=== PATIENT | female | born 1990 | race African-American/Black ===

== ENCOUNTER 2020-07-27 11:47 | Emergency (ER) | payer OTHER, SELFPAY ==
--- NOTE | ~2020-07-27 | XR_ITS ---
EXAMINATION: XR chest 1V portable DATE: 07/27/2020 12:37 INDICATION: Shortness breath. Chest tightness. TECHNIQUE: A single frontal view of the chest was obtained. COMPARISON: Chest single view 12/02/2019 FINDINGS: The chest demonstrates clear lungs without pneumonia, pleural effusion, or pneumothorax. Th e heart size is normal. IMPRESSION: 1. No acute cardiopulmonary disease. Reviewed, dictated and finalized at location A. TRUCK DRIVER
[2020-07-27 12:01] VITALS: BP 135/80; PULSE 66; RESP 18; TEMP 35.9; O2SAT 100
[2020-07-27 12:09] VITALS: PULSE 77
[2020-07-27 12:18] VITALS: BP 124/80; PULSE 62; RESP 20; O2SAT 99
--- NOTE | 2020-07-27 12:18 | ECG_ITS ---
Measurements Intervals [place] Rate: 65 P: 38 NE: 151 QRS: 21 QRSD: 85 T: 31 QT: 415 QTc: 433 Interpretive Statements SINUS RHYTHM NORMAL ECG Electronically Signed On 07-27-2020 13:14:59 LEGAL ADMINISTRATIVE SECRETARY by Miguel Angel Piña D.O.
[2020-07-27 12:28] LABS: Basophils Percent Auto 0.7 % (0.2-1.2); Eosinophils Absolute Auto 0.1 K/mm3 (0-0.3); Eosinophils Percent Auto 2.4 % (0-4.4); Hematocrit 39.6 % (37.0-47.0); Hemoglobin 12.9 g/dL (12.0-15.0); Lymphocytes Absolute Auto 2.61 K/mm3 (0.9-3.2); Lymphocytes Percent Auto 47.4 % (18.3-44.2); Mean Corpuscular HGB Conc 32.6 g/dl (32-36); Mean Corpuscular Hemoglobin 25.7 pg (26-34); Mean Platelet Volume 9.9 fl (7.4-10.4); Monocytes Absolute Auto 0.7 K/mm3 (0.1-0.6); Monocytes Percent Auto 12.5 % (2.6-8.5); Platelet Count Result 303 k/mm3 (150-375); Red Blood Count 5.01 M/mm3 (4.2-5.4); Red Cell Distribution Width 14.3 % (11.5-14.5); White Blood Count 5.5 K/mm3 (4.5-10.0)
[2020-07-27 12:41] LABS: Prothrombin Time 13.7 Seconds (11.1-14.7)
[2020-07-27 12:42] LABS: Partial Thromboplastin Time 29.8 SECONDS (22.3-36.8)
[2020-07-27 12:44] LABS: D Dimer 0.27 ug/mL (<0.48)
[2020-07-27 12:47] LABS: Anion Gap 8 mmol/L (8-16); Blood Urea Nitrogen 13 mg/dL (7-17); Calcium 8.9 mg/dL (8.4-10.2); Carbon Dioxide 27 mmol/L (22-30); Chloride 105 mmol/L (98-107); Estimated CRCL calculation 116 ml/min; Estimated Glomerular Filt Rate > 60; Glucose 85 mg/dL (65-105); Potassium 4.3 mmol/L (3.4-5.0); Sodium 140 mmol/L (137-145)
[2020-07-27 12:52] LABS: Troponin I < 0.012 ng/mL (0.000-0.034)
[2020-07-27 13:09] VITALS: BP 116/91; PULSE 63; RESP 20; O2SAT 100
[2020-07-27] MEDS: KETOROLAC 30 MG/ML VIAL (*BKC) IV PUSH (13:10)
[2020-07-27] MEDS: ASPIRIN 81 MG CHEWABLE TABLET 324 MG PO (13:10)
[2020-07-27 13:39] VITALS: BP 107/73; PULSE 61; RESP 20; O2SAT 100
--- NOTE | 2020-07-27 13:43 | ED.GENADULT ---
HPI - General Adult General Chief complaint: Chest Pain Stated complaint: lt chest and lt arm pain x 1 day Time Seen by Provider: 07/27/20 12:04 Source: patient Mode of arrival: ambulatory Limitations: no limitations History of Present Illness HPI narrative: Patient is a 30-year-old female who presents to emergency department for evaluation of left chest pain that began yesterday that radiates into the arm and neck denies similar occurrence worse with activity and movement. Patient on arrival is in no distress resting comfortably has not had anything for her symptoms Related Data Home Medications Medication Instructions Recorded Confirmed albuterol mcg INHALATION PRN 07/27/20 Allergies Allergy/AdvReac Type Severity Reaction Status Date / Time promethazine Allergy Anaphylactic Verified 07/27/20 12:12 Shock Review of Systems Review of Systems: All systems reviewed & are unremarkable except as noted in HPI and below PMFSH Social History Social History (Updated 07/27/20 @ 13:44 by Markos Gregorio PA-C) Smoking status: Never smoker Exam Narrative: Exam Narrative: GENERAL: Well-appearing, well-nourished, and in no acute distress. HEAD: Normocephalic, atraumatic. EYES: PERRLA and EOMI. ENT: Nares clear, no rhinorrhea or epistaxis. Mucous membranes moist. CHEST: Clear to auscultation. No respiratory distress. No wheezes rales or rhonchi HEART: Regular rate and rhythm. No murmur heard. EXTREMITIES: Normal range of motion. No edema. SKIN: Warm, dry, no rash. NEURO: No focal deficits. Alert and oriented x3. Cranial nerves II through XII grossly intact PSYCH: Normal mood and affect. Course Course Emergency Course: Patient in the room in no distress aware of case findings treatment plan diagnosis agreeing to follow-up as directed Vital Signs Vital signs: Vital Signs Temperature 96.6 F L 07/27/20 12:01 Pulse Rate 66 07/27/20 12:01 Respiratory Rate 18 07/27/20 12:01 Blood Pressure 135/80 07/27/20 12:01 Pulse Oximetry 100 07/27/20 12:01 Temperature 96.6 F L 07/27/20 12:01 Pulse Rate 61 07/27/20 13:39 Respiratory Rate 20 07/27/20 13:39 Blood Pressure 107/73 07/27/20 13:39 Pulse Oximetry 100 07/27/20 13:39 Medical Decision Making MDM Narrative Medical decision making narrative: Patients EKGs and labs are without significant high risk changes. Cardiac risk factors were reviewed. Patient is felt likely to be low risk for ACS and reasonable for further risk stratification testing as an outpatient. Pain was not sudden or maximal in onset without tearing or ripping. quality. No other signs or symptoms to suggest aortic dissection. A low-risk Wells criteria is noted. PE is felt to be unlikely. No pneumonia or URI symptoms were seen on evaluation today. Patient is felt to b reasonable for continued evaluation as an outpatient. Vital Signs Vital Signs: Vital Signs Temperature 96.6 F L 07/27/20 12:01 Pulse Rate 66 07/27/20 12:01 Respiratory Rate 18 07/27/20 12:01 Blood Pressure 135/80 07/27/20 12:01 Pulse Oximetry 100 07/27/20 12:01 Temperature 96.6 F L 07/27/20 12:01 Pulse Rate 61 07/27/20 13:39 Respiratory Rate 20 07/27/20 13:39 Blood Pressure 107/73 07/27/20 13:39 Pulse Oximetry 100 07/27/20 13:39 Lab Data Result diagrams: 07/27/20 12:20 07/27/20 12:20 Labs: Lab Results 07/27/20 07/27/20 07/27/20 Range/Units 12:20 12:20 12:20 WBC 5.5 (4.5-10.0) K/mm3 RBC 5.01 (4.2-5.4) M/mm3 Hgb 12.9 (12.0-15.0) g/dL Hct 39.6 (37.0-47.0) % MCV 79.0 L (80-100) fl MCH 25.7 L (26-34) pg MCHC 32.6 (32-36) g/dl RDW 14.3 (11.5-14.5) % Plt Count 303 (150-375) k/mm3 MPV 9.9 (7.4-10.4) fl Immature Gran % (Auto) 0.0 (0-0.5) % Neut % (Auto) 37.0 L (45.5-73.1) % Lymph % (Auto) 47.4 H (18.3-44.2) % Noble % (Auto) 12.5 H (2.6-8.5) % Eos % (Auto) 2.4
[2020-07-27 14:40] VITALS: BP 114/75; PULSE 56; RESP 18; O2SAT 98
== END 2020-07-27 14:50 | disposition home or self-care (01) ==
PROVIDERS: Emergency Provider Emergency Medicine; PCP Family Medicine
DX: R07.9 Chest pain, unspecified (principal)
CPT/HCPCS: 36415; 71045; 80048; 84484; 85025; 85380; 85610; 85730; 93005; 96374; 99284; A9270; J1885

== ENCOUNTER → 2020-10-04 09:10 | Outpatient (CLI) | payer OTHER, SELFPAY ==
--- NOTE | 2020-10-04 | ECG_ITS ---
Measurements Intervals [place] Rate: 65 P: 42 GA: 160 QRS: 29 QRSD: 91 T: 48 QT: 404 QTc: 420 Interpretive Statements SINUS RHYTHM BORDERLINE T WAVE ABNORMALITY- ANTERIOR LEADS BORDERLINE ECG Electronically Signed On 10-04-2020 15:41:58 METHODS ANALYST DATA PROCESSING by Miguel Angel Piña D.O.
--- NOTE | 2020-10-04 09:20 | PC.NURSE ---
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 PAIN HAS BEEN CONSTANT AND HAS CONTINUED TO WORSEN TODAY. EMS CALLED AND PT TAKEN TO ROOM 1 FOR EKG PRIOR TO TRANSPORT.
--- NOTE | 2020-10-04 09:25 | PC.NURSE ---
EMS HERE TO TRANSPORT TO [facility]. NO CHANGE IN CONDITION.
== END | disposition short-term general hospital (02) ==
PROVIDERS: Visit Provider Nurse Practitioner
DX: R07.9 Chest pain, unspecified (principal); R94.31 Abnormal electrocardiogram [ECG] [EKG]
CPT/HCPCS: 93005

== ENCOUNTER 2020-10-04 10:15 | Emergency (ER) | payer OTHER, SELFPAY ==
--- NOTE | ~2020-10-04 | XR_ITS ---
EXAMINATION: XR chest 1V portable DATE: 10/04/2020 10:34 INDICATION: Chest pain. TECHNIQUE: A single frontal view of the chest was obtained. COMPARISON: Chest single view 07/27/2020 FINDINGS: The chest demonstrates clear lungs without pneumonia, pleural effusion, or pneumothorax. Th e heart size is normal. IMPRESSION: 1. No acute cardiopulmonary disease. Reviewed, dictated and finalized at location A. ET EXAMINER
--- NOTE | 2020-10-04 10:03 | ECG_ITS ---
Measurements Intervals [place] Rate: 58 P: 41 MO: 160 QRS: 18 QRSD: 82 T: 30 QT: 405 QTc: 399 Interpretive Statements SINUS BRADYCARDIA BORDERLINE ECG Electronically Signed On 10-04-2020 11:06:53 TRACKLESS TROLLEY DRIVER by Miguel Angel BETANCUR
[2020-10-04 10:32] VITALS: BP 134/95; PULSE 62; RESP 16; TEMP 37; O2SAT 100
[2020-10-04 10:43] LABS: Basophils Percent Auto 0.4 % (0.2-1.2); Eosinophils Absolute Auto 0.1 K/mm3 (0-0.3); Eosinophils Percent Auto 3.1 % (0-4.4); Hematocrit 38.9 % (37.0-47.0); Hemoglobin 12.8 g/dL (12.0-15.0); Immature Granulocyte Absolute 0.01 K/mm3 (0.00-0.031); Immature Granulocyte Percent A 0.2 % (0-0.5); Lymphocytes Absolute Auto 2.44 K/mm3 (0.9-3.2); Lymphocytes Percent Auto 54.3 % (18.3-44.2); Mean Corpuscular HGB Conc 32.9 g/dl (32-36); Mean Corpuscular Hemoglobin 25.7 pg (26-34); Mean Corpuscular Volume 78.1 fl (80-100); Mean Platelet Volume 9.8 fl (7.4-10.4); Monocytes Absolute Auto 0.4 K/mm3 (0.1-0.6); Monocytes Percent Auto 8.2 % (2.6-8.5); Neutrophils Absolute Auto 1.5 K/mm3 (1.3-6.7); Neutrophils Percent Auto 33.8 % (45.5-73.1); Platelet Count Result 288 k/mm3 (150-375); Red Blood Count 4.98 M/mm3 (4.2-5.4); Red Cell Distribution Width 14.3 % (11.5-14.5); White Blood Count 4.5 K/mm3 (4.5-10.0)
[2020-10-04 10:55] LABS: Prothrombin Time 13.3 Seconds (11.1-14.7)
[2020-10-04] MEDS: ASPIRIN 81 MG CHEWABLE TABLET 324 MG PO (10:55)
--- NOTE | 2020-10-04 10:56 | PC.NURSE ---
Pt states she is unable to give urine at this time.
[2020-10-04 11:07] LABS: Anion Gap 9 mmol/L (8-16); Blood Urea Nitrogen 13 mg/dL (7-17); Calcium 8.9 mg/dL (8.4-10.2); Carbon Dioxide 24 mmol/L (22-30); Chloride 105 mmol/L (98-107); Estimated CRCL calculation 116 ml/min; Estimated Glomerular Filt Rate > 60; Glucose 88 mg/dL (65-105); Potassium 3.8 mmol/L (3.4-5.0); Sodium 138 mmol/L (137-145)
[2020-10-04 11:18] LABS: Troponin I < 0.012 ng/mL (0.000-0.034)
[2020-10-04 13:00] VITALS: BP 130/84; PULSE 59; RESP 14; O2SAT 99
--- NOTE | 2020-11-02 09:37 | ED.CHESTPAIN ---
HPI - Chest Pain General Chief Complaint: Chest Pain Stated Complaint: CP Time Seen by Provider: 10/04/20 10:18 Source: patient Mode of arrival: EMS Limitations: no limitations History of Present Illness HPI narrative: Patient presents with chief complaint of left breast pain that has been intermittent for the past 2 to 3 days. Patient states it has actually been a bit longer probably up to a week. She states she has been under a lot of stress recently. Patient states she had an episode similar to this in July but her work-up showed no abnormal findings so she was discharged and instructed to follow-up with her primary care. She states no abnormalities were found in her follow-up work-up. Patient not sure what all states she had performed. She denies diaphoresis, palpitations, fever, chills, cough, shortness of breath. Patient states that the pain to the left side of her chest is mild and achy at this time. Patient denies being on control or estrogen or hormonal therapies. Patient denies being a smoker. Patient denies family history of early age heart attacks. Patient denies having any chronic illnesses such as hypertension, diabetes, thyroid disorders or past cardiovascular disease or ID or heart attacks. Related Data Home Medications Medication Instructions Recorded Confirmed albuterol mcg INHALATION PRN 07/27/20 Allergies Allergy/AdvReac Type Severity Reaction Status Date / Time promethazine Allergy Anaphylactic Verified 07/27/20 12:12 Shock Review of Systems Review of Systems: Narrative: CONSTITUTIONAL: Denies fever, chills, or sweats. EYES: Denies visual changes, redness, or discharge. ENT: Denies rhinorrhea, congestion, sore throat, or otalgia. CARDIOVASCULAR: Reports chest pain denies palpitations, or edema. RESPIRATORY: Denies cough or dyspnea. GASTROINTESTINAL: Denies abdominal pain, nausea, vomiting, or diarrhea. GENITOURINARY: Denies dysuria or hematuria. SKIN: Denies rash or itching. MUSCULOSKELETAL: Denies back pain, joint pain, or myalgia. NEUROLOGIC: Denies headache, numbness, dizziness, or weakness. PSYCHIATRIC: Denies anxiety or depression. [facility] Social History Social History (Updated 07/27/20 @ 13:44 by Markos Gregorio PA-C) Smoking status: Never smoker Exam Narrative: Exam Narrative: GENERAL: Well-appearing, well-nourished, and in no acute distress. Patient resting comfortably in bed without signs of discomfort. HEAD: Normocephalic, atraumatic. EYES: PERRLA and EOMI. NECK: Supple. No adenopathy or masses. No carotid bruits or JVD CHEST: Clear to auscultation. No respiratory distress. No wheezes rales or rhonchi HEART: Regular rate and rhythm. No murmur heard. Normal peripheral pulses. ABDOMEN: Soft, nontender, nondistended, normal active bowel sounds. EXTREMITIES: Normal range of motion. No edema. SKIN: Warm, dry, no rash. NEURO: No focal deficits. Alert and oriented x3. PSYCH: Normal mood and affect. Course Vital Signs Vital signs: Vital Signs Temperature 98.6 F 10/04/20 10:32 Pulse Rate 62 10/04/20 10:32 Respiratory Rate 16 10/04/20 10:32 Blood Pressure 134/95 H 10/04/20 10:32 Pulse Oximetry 100 10/04/20 10:32 Temperature 98.6 F 10/04/20 10:32 Pulse Rate 59 L 10/04/20 13:00 Respiratory Rate 14 10/04/20 13:00 Blood Pressure 130/84 10/04/20 13:00 Pulse Oximetry 99 10/04/20 13:00 MDM - Chest Pain MDM Narrative Medical decision making narrative: Patient's heart score is low and patient declines to stay for delta troponin. Patient also declined other medications for discomfort. Patient reports that her discomfort has improved and she needs to go as her ride has alternative plans. Patient's vitals have been stable. Patient's EKG was is without signs of STEMI. Patient's initial troponin is negative. Patient has been having these symptoms for many days. Patient is instructed to return to emergency department if her chest
== END 2020-10-04 13:17 | disposition home or self-care (01) ==
PROVIDERS: Emergency Provider Emergency Medicine; PCP Family Medicine
DX: R07.9 Chest pain, unspecified (principal); R00.1 Bradycardia, unspecified
CPT/HCPCS: 36415; 71045; 80048; 81025; 84484; 85025; 85610; 85730; 93005; 99284; A9270

== ENCOUNTER 2020-10-28 13:31 | Outpatient (CLI) | payer OTHER, SELFPAY ==
--- NOTE | 2020-10-28 | ECHO_ITS ---
Patient Info Name: Luz Marina Stockton Age: 30 years : 1990 Gender: Female Ht: 70 in Wt: 276 lbs BSA: 2.54 m2 HR: 64 bpm BP: 129 / 78 mmHg Heart Rhythm: Sinus Rhythm Technical Quality: Fair Exam Date: 10/28/2020 1:53 PM Exam Location: [facility] Pulmonary Patient Status: Outpatient Admit Date: 10/28/2020 Staff Ordering Physician: Luisito Hammond MD Developmental Therapist: Tiana Mackenzie RDCS Attending Provider: Luisito Hammond MD Referring Physician: Manish ZAIDI; Exam Type: CA echo doppler color flow Study Info Indications R07.89 - Other chest pain Complete two-dimensional, color flow and Doppler transthoracic echocardiogram is performed. Summary 1. Complete two-dimensional, color flow and Doppler transthoracic echocardiogram is performed. 2. Left ventricular chamber size, wall thickness, systolic and diastolic function are normal with no regional wall motion abnormalities with an estimated ejection fraction of 60-65%. 3. No pulmonary hypertension, estimated pulmonary arterial systolic pressure is 24 mmHg. 4. No significant valve disease. 5. Normal sinus rhythm. Left Ventricle Left ventricular chamber dimension is normal. Left ventricular systolic function is normal, estimated at 60-65%. There is no increased left ventricular wall thickness. Left ventricular septal wall motion is normal. The left ventricular diastolic function is normal. Left ventricular chamber size, wall thickness, systolic and diastolic function are normal with no regional wall motion abnormalities with an estimated ejection fraction of 60-65%. Right Ventricle Right ventricular chamber dimension is normal. Right ventricular systolic function is normal. Left Atria Left atrial chamber dimension is normal. Right Atria Right atrial chamber dimension is normal. Aortic Valve The aortic valve is trileaflet. There is no aortic valve sclerosis. There is no aortic valve stenosis. There is no aortic valve regurgitation. Pulmonic Valve The pulmonic valve is normal. There is no pulmonic valve stenosis. There is no pulmonic regurgitation. Mitral Valve The mitral valve has normal leaflets. There is no mitral valve stenosis. There is no mitral valve regurgitation. Tricuspid Valve The tricuspid valve leaflets are normal. There is no significant tricuspid valve stenosis. There is trace tricuspid valve regurgitation. No pulmonary hypertension, estimated pulmonary arterial systolic pressure is 24 mmHg. Pericardium/Pleural The pericardium appears normal. There is no pericardial effusion. Inferior Vena Cava Normal inferior vena cava with >50% collapse upon inspiration consistent with Empty right atrial pressure, 10 mmHg. Aorta The aortic root size at the sinus of Valsalva is normal. The prox ascending aorta size is normal. Left Ventricular Outflow Tract Name Value Normal LVOT 2D LVOT Diameter 2.1 cm LVOT Doppler LVOT Peak Gradient 2 mmHg LVOT Mean Gradient 1 mmHg LVOT VTI 16 cm LVOT VTI/AV VTI Ratio
== END 2020-10-28 13:32 | disposition home or self-care (01) ==
PROVIDERS: PCP Family Medicine; Visit Provider Internal Medicine Cardiovascular Disease
DX: R07.89 Other chest pain (principal)
CPT/HCPCS: 93306

== ENCOUNTER 2020-10-31 11:12 | Outpatient (CLI) | payer OTHER, SELFPAY ==
[2020-10-31 11:41] LABS: Basophils Percent Auto 0.9 % (0.2-1.2); Eosinophils Absolute Auto 0.1 K/mm3 (0-0.3); Eosinophils Percent Auto 2.9 % (0-4.4); Hematocrit 40.5 % (37.0-47.0); Hemoglobin 13.4 g/dL (12.0-15.0); Immature Granulocyte Absolute 0.01 K/mm3 (0.00-0.031); Immature Granulocyte Percent A 0.2 % (0-0.5); Lymphocytes Absolute Auto 2.05 K/mm3 (0.9-3.2); Lymphocytes Percent Auto 45.9 % (18.3-44.2); Mean Corpuscular HGB Conc 33.1 g/dl (32-36); Mean Corpuscular Hemoglobin 26.1 pg (26-34); Mean Corpuscular Volume 78.8 fl (80-100); Monocytes Absolute Auto 0.4 K/mm3 (0.1-0.6); Monocytes Percent Auto 7.8 % (2.6-8.5); Neutrophils Absolute Auto 1.9 K/mm3 (1.3-6.7); Neutrophils Percent Auto 42.3 % (45.5-73.1); Platelet Count Result 287 k/mm3 (150-375); Red Blood Count 5.14 M/mm3 (4.2-5.4); Red Cell Distribution Width 14.4 % (11.5-14.5); White Blood Count 4.5 K/mm3 (4.5-10.0)
[2020-10-31 11:55] LABS: Alanine Aminotransferase 18 U/L (4-35); Albumin Level 4.1 g/dL (3.5-5.1); Alkaline Phosphatase 65 U/L (38-126); Anion Gap 4 mmol/L (8-16); Aspartate Amino Transferase 26 U/L (14-36); Bilirubin,Total 0.3 mg/dL (0.2-1.3); Blood Urea Nitrogen 10 mg/dL (7-17); Calcium 8.8 mg/dL (8.4-10.2); Carbon Dioxide 27 mmol/L (22-30); Chloride 108 mmol/L (98-107); Estimated Glomerular Filt Rate > 60; Glucose 111 mg/dL (65-105); Potassium 4.1 mmol/L (3.4-5.0); Sodium 139 mmol/L (137-145)
[2020-10-31 12:22] LABS: Free T4 Free Thyroxine 0.75 ng/mL (0.78-2.19)
[2020-10-31 12:25] LABS: Thyroid Stimulating Hormone 0.407 uIU/mL (0.465-4.680)
[2020-11-03 07:31] LABS: LH 8.1 mIU/mL (***); Prolactin 8.6 ng/mL (***)
[2020-11-04 23:01] LABS: Estradiol, Ultrasensitive 44 pg/mL
== END 2020-10-31 11:13 | disposition home or self-care (01) ==
LOC: ANHLAB 11:14
PROVIDERS: PCP Family Medicine; Visit Provider Nurse Practitioner Family
DX: N91.2 Amenorrhea, unspecified (principal)
CPT/HCPCS: 36415; 80053; 82670; 83001; 83002; 84146; 84439; 84443; 85025

== ENCOUNTER 2020-11-03 13:04 | Outpatient (CLI) | payer OTHER, SELFPAY ==
--- NOTE | ~2020-11-03 | US_ITS ---
EXAMINATION: US pelvic complete w TV EXAM DATE: 11/03/2020 14:31 INDICATION: Amenorrhea. TECHNIQUE: Pelvic transabdominal and transvaginal sonogram was performed. There are multiple graysca le and Doppler images available for interpretation. There is no prior study for comparison. FINDINGS: Uterus measures 8.0 x 3.1 x 4.6 cm, with possible 1.2 cm anterior fibroid. Endometrial str ipe measures 7 mm, within normal limits. There is no free pelvic fluid. Right adnexa: The ovary measures 3.6 x 3.0 x 3.2 cm and is morphologically normal. Ovarian vascular f low confirmed. Left adnexa: The ovary measures 3.5 x 2.9 x 2.6 cm and is morphologically normal. Ovarian vascular fl ow confirmed. IMPRESSION: 1. Possible small fibroid. Reviewed, dictated and finalized at location B. MOBILE MECHANIC RADIATOR IMPRESSION: 1. Possible small fibroid.
[2020-11-06 07:26] LABS: FSH 5.9 mIU/mL (***); LH 8.2 mIU/mL (***); Prolactin 9.9 ng/mL (***)
[2020-11-11 22:36] LABS: Estradiol, Ultrasensitive 52 pg/mL
== END 2020-11-03 13:05 | disposition home or self-care (01) ==
PROVIDERS: PCP Family Medicine; Visit Provider Nurse Practitioner Family
DX: N91.2 Amenorrhea, unspecified (principal)
CPT/HCPCS: 36415; 76830; 76856; 82670; 83001; 83002; 84146

== ENCOUNTER 2020-11-15 08:35 | Outpatient (CLI) | payer OTHER, SELFPAY ==
--- NOTE | 2020-11-15 | EST_ITS ---
Patient Info Name: Luz Marina Stockton Age: 30 years : 1990 Gender: Female Heart Rhythm: Sinus Rhythm Exam Date: 11/15/2020 9:32 AM Exam Location: [facility] Stress Patient Status: Outpatient Admit Date: 11/15/2020 Staff Ordering Physician: Luisito Hammond MD Attending Provider: Luisito Hammond MD Exercise Technologist: Kandy Huerta CT Exercise Physician: Murali Mcallister MD Exam Type: CA stress test treadmill Study Info Indications R07.9 - Chest pain, unspecified A treadmill exercise stress test was performed. Summary 1. No exercise-induced chest pain. 2. Below average exercise capacity for age. 3. Hypertensive blood pressure response exercise. 4. Normal Submaximal exercise treadmill stress test as the patient only achieved 82% of maximum predicted heart rate for age. Protocol: Bennett Rest HR: 63 bpm Peak HR: 157 bpm Rest Sys BP: 123 mmHg Peak Sys BP: 253 mmHg Max Pred HR: 191 bpm % Max Pred HR: 82 % Target HR: 162 bpm Max RPP: 39,721 bpm*mmHg Target HR Summary: Hemodynamic response to exercise was normal BP Response: Patient exhibited a hypertensive response with stress Termination Reason: Patient exhibited a hypertensive response with stress Cardiac Symptoms: None Total Time: 6 min : 3 sec Rest Tom BP: 67 mmHg Peak Tom BP: 87 mmHg Total METS: 6.2 Resting ECG Normal sinus rhythm - normal ECG. Stress ECG No abnormal ST/T wave changes with exercise. Arrhythmias None. Report Signatures
== END 2020-11-15 08:36 | disposition home or self-care (01) ==
PROVIDERS: PCP Family Medicine; Visit Provider Internal Medicine Cardiovascular Disease
DX: R07.89 Other chest pain (principal)
CPT/HCPCS: 93017

== ENCOUNTER 2020-11-30 15:52 | Outpatient (CLI) | payer OTHER, SELFPAY ==
[2020-11-30 16:44] LABS: Beta HCG Quantitative < 2.39 mIU/ML
[2020-11-30 16:58] LABS: Thyroid Stimulating Hormone 0.551 uIU/mL (0.465-4.680)
[2020-11-30 17:51] LABS: Free T4 Free Thyroxine 0.72 ng/mL (0.78-2.19)
[2020-12-03 06:22] LABS: Thyroid Peroxidase Antibodies <1 IU/mL (<9)
[2020-12-05 08:34] LABS: Testosterone Free 12.5 pg/mL (0.1-6.4); Testosterone Total 63 ng/dL (2-45)
== END 2020-11-30 15:53 | disposition home or self-care (01) ==
LOC: ANHLAB 15:53
PROVIDERS: PCP Family Medicine; Visit Provider Nurse Practitioner Family
DX: R79.89 Other specified abnormal findings of blood chemistry (principal); L68.0 Hirsutism; N91.2 Amenorrhea, unspecified
CPT/HCPCS: 36415; 84402; 84403; 84439; 84443; 84702; 86376

== ENCOUNTER 2020-12-29 16:13 | Outpatient (CLI) | payer OTHER, SELFPAY ==
[2020-12-29 16:51] LABS: Basophils Percent Auto 0.7 % (0.2-1.2); Eosinophils Absolute Auto 0.1 K/mm3 (0-0.3); Eosinophils Percent Auto 2.1 % (0-4.4); Hematocrit 36.6 % (37.0-47.0); Immature Granulocyte Absolute 0.01 K/mm3 (0.00-0.031); Immature Granulocyte Percent A 0.2 % (0-0.5); Lymphocytes Absolute Auto 2.94 K/mm3 (0.9-3.2); Lymphocytes Percent Auto 50.6 % (18.3-44.2); Mean Corpuscular HGB Conc 32.8 g/dl (32-36); Mean Corpuscular Hemoglobin 25.9 pg (26-34); Mean Platelet Volume 9.7 fl (7.4-10.4); Monocytes Absolute Auto 0.5 K/mm3 (0.1-0.6); Monocytes Percent Auto 9.1 % (2.6-8.5); Neutrophils Absolute Auto 2.2 K/mm3 (1.3-6.7); Neutrophils Percent Auto 37.3 % (45.5-73.1); Platelet Count Result 331 k/mm3 (150-375); Red Blood Count 4.63 M/mm3 (4.2-5.4); Red Cell Distribution Width 13.9 % (11.5-14.5); White Blood Count 5.8 K/mm3 (4.5-10.0)
[2020-12-29 17:02] LABS: Alanine Aminotransferase 17 U/L (4-35); Albumin Level 4.2 g/dL (3.5-5.1); Alkaline Phosphatase 61 U/L (38-126); Anion Gap 6 mmol/L (8-16); Aspartate Amino Transferase 23 U/L (14-36); Bilirubin,Total 0.3 mg/dL (0.2-1.3); Blood Urea Nitrogen 11 mg/dL (7-17); Calcium 9.1 mg/dL (8.4-10.2); Carbon Dioxide 29 mmol/L (22-30); Chloride 105 mmol/L (98-107); Estimated Glomerular Filt Rate > 60; Glucose 88 mg/dL (65-105); Potassium 4.2 mmol/L (3.4-5.0); Sodium 140 mmol/L (137-145)
[2020-12-29 17:32] LABS: Thyroid Stimulating Hormone 0.372 uIU/mL (0.465-4.680)
[2020-12-29 18:02] LABS: Free T4 Free Thyroxine 0.75 ng/mL (0.78-2.19)
[2021-01-01 08:16] LABS: FSH 6.4 mIU/mL (***); LH 7.7 mIU/mL (***); Prolactin 8.6 ng/mL (***)
[2021-01-05 00:07] LABS: Estradiol, Ultrasensitive 45 pg/mL
== END 2020-12-29 16:14 | disposition home or self-care (01) ==
LOC: ANHLAB 16:15
PROVIDERS: PCP Family Medicine; Visit Provider Nurse Practitioner Family
DX: N91.2 Amenorrhea, unspecified (principal)
CPT/HCPCS: 36415; 80053; 82670; 83001; 83002; 84146; 84439; 84443; 85025

== ENCOUNTER 2021-01-20 06:42 | Outpatient (CLI) | payer OTHER, SELFPAY ==
[2021-01-24 04:59] LABS: Progesterone <0.2 ng/mL (***)
== END 2021-01-20 06:43 | disposition home or self-care (01) ==
PROVIDERS: PCP Family Medicine; Visit Provider Obstetrics & Gynecology
DX: N97.9 Female infertility, unspecified (principal)
CPT/HCPCS: 36415; 84144

== ENCOUNTER 2021-02-11 11:23 | Outpatient (CLI) | payer OTHER, SELFPAY ==
[2021-02-15 21:41] LABS: Progesterone 3.9 ng/mL (***)
== END 2021-02-11 11:24 | disposition home or self-care (01) ==
PROVIDERS: PCP Family Medicine; Visit Provider Obstetrics & Gynecology
DX: Z31.41 Encounter for fertility testing (principal)
CPT/HCPCS: 36415; 84144

== ENCOUNTER 2021-04-11 17:35 | Outpatient (CLI) | payer OTHER, SELFPAY ==
--- NOTE | ~2021-04-11 | XR_ITS ---
EXAMINATION: XR foot RT min 3V DATE: 04/11/2021 17:57 INDICATION: Right foot pain. Calcaneal spur. TECHNIQUE: 4 views of right foot were obtained. COMPARISON: None. FINDINGS: There is mild hallux valgus. No fracture. There is mild osteoarthritis of first metatarsoph alangeal joint. There is an enthesophyte at posterior aspect of calcaneal tuberosity. IMPRESSION: 1. Mild hallux valgus. 2. Mild osteoarthritis of first metatarsophalangeal joint. Reviewed, dictated and finalized at location A.
--- NOTE | ~2021-04-11 | XR_ITS ---
EXAMINATION: XR foot LT min 3V DATE: 04/11/2021 17:57 INDICATION: Left-sided pain. Calcaneal spur. TECHNIQUE: 4 views of left foot were obtained. COMPARISON: None. FINDINGS: There is mild hallux valgus. No fracture. There is mild osteoarthritis of first metatarsoph alangeal joint and talonavicular joint. There is an enthesophyte at posterior aspect of calcaneal tub erosity. IMPRESSION: 1. Mild hallux valgus. 2. Mild polyarticular osteoarthritis. Reviewed, dictated and finalized at location A.
== END 2021-04-11 17:36 | disposition home or self-care (01) ==
LOC: ANHIMG 17:38
PROVIDERS: PCP Family Medicine; Visit Provider Podiatrist Foot & Ankle Surgery
DX: M77.32 Calcaneal spur, left foot (principal); M77.31 Calcaneal spur, right foot; M19.071 Primary osteoarthritis, right ankle and foot; M19.072 Primary osteoarthritis, left ankle and foot
CPT/HCPCS: 73630

== ENCOUNTER 2021-05-30 07:55 | Outpatient (CLI) | payer OTHER, SELFPAY ==
[2021-05-30 08:53] LABS: Alanine Aminotransferase 17 U/L (4-35); Albumin Level 4.3 g/dL (3.5-5.1); Alkaline Phosphatase 64 U/L (38-126); Anion Gap 10 mmol/L (8-16); Aspartate Amino Transferase 27 U/L (14-36); Bilirubin,Total 0.5 mg/dL (0.2-1.3); Blood Urea Nitrogen 14 mg/dL (7-17); Calcium 9.6 mg/dL (8.4-10.2); Carbon Dioxide 24 mmol/L (22-30); Chloride 106 mmol/L (98-107); Cholesterol 198 mg/dL (0-200); Estimated Glomerular Filt Rate > 60; Glucose 102 mg/dL (65-110); HDL Direct 32 mg/dL; Potassium 4.2 mmol/L (3.4-5.0); Sodium 140 mmol/L (137-145); Triglycerides 138 mg/dL (<150)
[2021-05-30 09:04] LABS: LDL Cholesterol Direct 114 mg/dL
[2021-05-30 09:27] LABS: Hemoglobin A1C 5.7 % (<5.7)
== END 2021-05-30 07:56 | disposition home or self-care (01) ==
PROVIDERS: PCP Family Medicine; Visit Provider Family Medicine
DX: L83 Acanthosis nigricans (principal); Z13.220 Encounter for screening for lipoid disorders
CPT/HCPCS: 36415; 80053; 80061; 83036

== ENCOUNTER 2021-08-20 08:29 | Emergency (ER) | payer OTHER, SELFPAY ==
--- NOTE | ~2021-08-20 | XR_ITS ---
EXAMINATION: XR ankle RT min 3V INDICATION: Right ankle pain TECHNIQUE: Four views of the right ankle are obtained. COMPARISON: None available FINDINGS: There is no fracture, dislocation, or subluxation. The joint spaces are normal. There is mi ld anterior soft tissue swelling overlying the ankle. A posterior calcaneal enthesophyte is noted. IMPRESSION: 1. No acute osseous abnormality. Reviewed, dictated and finalized at location A. MANAGEMENT ADVISOR
[2021-08-20 08:37] VITALS: BP 108/80; PULSE 63; RESP 20; TEMP 36.5; O2SAT 100
--- NOTE | 2021-08-20 09:08 | ED.LOWEXIN ---
HPI - Extremity Injury (Lower) General Chief Complaint: Extremity Injury, Lower Stated Complaint: right ankle injury Time Seen by Provider: 08/20/21 09:01 Source: patient and RN notes reviewed Mode of arrival: ambulatory Limitations: no limitations History of Present Illness HPI Narrative: Patient presents today complaining of a right ankle injury. 5 days ago, a wheel from a computer on wheels came off and the cart fell on top of her ankle. Currently rates her pain 6/10. She has tried no [id number] interventions prior to arrival. Pain increases with weightbearing. Denies numbness or tingling. States pain has progressively gotten worse since initial injury. MD complaint: ankle injury Related Data Home Medications Medication Instructions Recorded Confirmed No Home Medications 08/20/21 08/20/21 Allergies Allergy/AdvReac Type Severity Reaction Status Date / Time promethazine Allergy Anaphylactic Verified 07/27/20 12:12 Shock Review of Systems Review of Systems: CONSTITUTIONAL: Denies body aches, fever, chills, or sweats. EYES: Denies visual changes, redness, or discharge. ENT: Denies rhinorrhea, congestion, sore throat, or otalgia. CARDIOVASCULAR: Denies chest pain, palpitations, or edema. RESPIRATORY: Denies cough or dyspnea. GASTROINTESTINAL: Denies abdominal pain, nausea, vomiting, or diarrhea. GENITOURINARY: Denies dysuria or hematuria. SKIN: Denies rash, itching, or wounds. MUSCULOSKELETAL: Denies back pain, or myalgia. + Right ankle injury NEUROLOGIC: Denies headache, numbness, tingling, or weakness. PSYCH: Denies depression or anxiety. [facility] Social History Social History Smoking status: Never smoker Comments At time of signature, I have reviewed and agree with nursing past medical, surgical, social and family history unless otherwise noted. Please see nursing chart for further information. There is no relevant family history pertinent to the presenting complaint Exam Narrative: GENERAL: Well-appearing, well-nourished, and in no acute distress. HEAD: Normocephalic, atraumatic. EYES: EOMI. No redness or drainage. Conjunctivae normal. ENT: Mucous membranes pink and moist. NECK: Normal AROM. CHEST: No respiratory distress. EXTREMITIES: Right ankle: Tenderness with scant edema to the anterior ankle, extending medially. No bony tenderness to medial or lateral malleolus. Distal sensation intact. Capillary refill normal. Pedal pulse normal. Full AROM of the ankle with increased pain. SKIN: Warm, dry, no rash. Capillary refill normal. Normal skin turgor. NEURO: No focal deficits. Alert and oriented x3. Gait steady. PSYCH: Normal affect. No signs of depression or anxiety. Course Vital Signs Vital signs: Vital Signs Temperature 97.7 F 08/20/21 08:37 Pulse Rate 63 08/20/21 08:37 Respiratory Rate 20 08/20/21 08:37 Blood Pressure 108/80 08/20/21 08:37 Pulse Oximetry 100 08/20/21 08:37 Temperature 97.7 F 08/20/21 08:37 Pulse Rate 63 08/20/21 08:37 Respiratory Rate 20 08/20/21 08:37 Blood Pressure 108/80 08/20/21 08:37 Pulse Oximetry 100 08/20/21 08:37 Reviewed MDM - Extremity Injury (Lower) Differential Diagnosis Differential diagnosis: Likely ankle sprain and strain, ankle fracture and other (Contusion) Imaging Data Radiologist's impression: ITS Impressions Ankle X-Ray 08/20/21 08:52 IMPRESSION: 1. No acute osseous abnormality. Critical Care Time Critical Care Time Critical Care Time: No Discharge Plan Discharge Clinical Impression: Contusion of ankle, right Qualifiers: Encounter type: initial encounter Qualified Code(s): S90.01XA - Contusion of right ankle, initial encounter Patient Disposition: Home, Self-Care Condition: Stable Instructions: Contusion in Adults (ED) Additional Instructions: Your x-ray is negative for fracture today.
== END 2021-08-20 09:18 | disposition home or self-care (01) ==
PROVIDERS: Emergency Provider Nurse Practitioner; PCP Family Medicine
DX: S90.01XA Contusion of right ankle, initial encounter (principal); W20.8XXA Other cause of strike by thrown, projected or falling object, initial encounter; J45.909 Unspecified asthma, uncomplicated
CPT/HCPCS: 73610; 99213; G0463

== ENCOUNTER 2021-10-28 08:28 | Emergency (ER) | payer OTHER, SELFPAY ==
--- NOTE | ~2021-10-28 | XR_ITS ---
EXAMINATION: XR thoracic spine 3V DATE: 10/28/2021 09:14 INDICATION: Midline back pain post fall TECHNIQUE: One AP, lateral and lateral swimmer's views of the thoracic spine were obtained. COMPARISON: None. FINDINGS: Slight mid thoracic dextrocurvature. Sagittal alignment is normal. Vertebral body and disc heights ar e normal. Transitional cervicothoracic thoracolumbar segments with hypoplastic 1st and 13th ribs. Vis ualized portions of the lungs are clear. No pleural effusion or pneumothorax. Cardiomediastinal silho uette is normal. IMPRESSION: 1. Slight thoracic dextrocurvature. No acute osseous abnormality. Reviewed, dictated and finalized at location A. ANICAL PRODUCT ENGINEER
--- NOTE | ~2021-10-28 | XR_ITS ---
EXAMINATION: XR ankle LT min 3V DATE: 10/28/2021 09:14 INDICATION: Tarsal and lateral ankle pain post fall TECHNIQUE: Anteroposterior, oblique, mortise, and lateral views of the left ankle were obtained. COMPARISON: None. FINDINGS: Alignment is normal. No fracture. Joint spaces are well maintained. Achilles calcaneal spur. No ankl e joint effusion. The soft tissues are unremarkable. IMPRESSION: 1. No acute osseous abnormality. Reviewed, dictated and finalized at location A. OLOGY PROFESSOR
--- NOTE | ~2021-10-28 | XR_ITS ---
EXAMINATION: XR hip LT min 2V DATE: 10/28/2021 09:14 INDICATION: Lateral left hip pain post fall on ice TECHNIQUE: Anteroposterior , frog leg and cross-table lateral views of the left hip were obtained. COMPARISON: None. FINDINGS: Alignment is normal. No fracture. Left hip joint space is normal. There are tiny marginal osteophytes about the femoral head and larger marginal osteophytes along the superolateral acetabulum. Soft tiss ues are unremarkable. IMPRESSION: 1. No acute osseous abnormality. Reviewed, dictated and finalized at location A. COURSE ASSISTANT
[2021-10-28 08:40] VITALS: BP 114/78; PULSE 78; RESP 18; TEMP 36.9; O2SAT 98
--- NOTE | 2021-10-28 08:43 | WC.ED.TRAUMA ---
HPI - Trauma General Chief Complaint: Fall Stated Complaint: fall Time Seen by Provider: 10/28/21 08:43 Source: patient, RN notes reviewed and old records reviewed Mode of arrival: ambulatory Limitations: no limitations History of Present Illness HPI narrative: 31 year old female who presents to [facility] care with complaints of getting out of her car last night in the parking [facility] emergency room to go to work and slipped on the ice injuring her left ankle, left hip and her thoracic spine region.Patient reports that she did work her full shift afterwards and tried to prop her left foot up as much as possible. Patient describes her back pain as across upper back beneath scapula area. Patient does have limping gait with some swelling to the left dorsal lateral foot and ankle. MD complaint: fall Location: back Location - Extremities: Left: hip and ankle Context: fall Related Data Home Medications Medication Instructions Recorded Confirmed albuterol sulfate 2 puff INHALATION QID PRN 10/28/21 10/28/21 Allergies Allergy/AdvReac Type Severity Reaction Status Date / Time promethazine Allergy Anaphylactic Verified 07/27/20 12:12 Shock Review of Systems Review of Systems: CONSTITUTIONAL: Denies fever, chills, or sweats. EYES: Denies visual changes, redness, or discharge. ENT: Denies rhinorrhea, congestion, sore throat, or otalgia. CARDIOVASCULAR: Denies chest pain, palpitations, or edema. RESPIRATORY: Denies cough or dyspnea. GASTROINTESTINAL: Denies abdominal pain, nausea, vomiting, or diarrhea. GENITOURINARY: Denies dysuria or hematuria. SKIN: Denies rash or itching. MUSCULOSKELETAL: Positive for thoracic back pain,left ankle and left hip joint pain, or myalgia. NEUROLOGIC: Denies headache, numbness, or weakness. PSYCHIATRIC: Denies anxiety or depression. All systems reviewed & are unremarkable except as noted in HPI and below [facility] Past Medical History Medical History (Updated 10/29/21 @ 00:00 by Santana Hernandez) Asthma Chronic bronchitis Surgical History Surgical History (Updated 10/28/21 @ 09:41 by Catrina Will NP) History of tonsillectomy and adenoidectomy Family History Family History (Updated 10/28/21 @ 09:40 by Catrina Will NP) Grandparent Hypertension Malignant neoplasm of prostate Breast cancer Heart disease Father Acute myocardial infarction Social History Social History (Updated 10/28/21 @ 09:39 by Catrina Will NP) Smoking status: Never smoker Alcohol intake: current Alcohol use details: social Substance use: never Living arrangements: alone Gender identity (if verbalized by the patient): Female Comments At time of signature, agree with nursing past medical, surgical, social and family history. There is no relevant family history pertinent to the presenting complaint Exam Narrative: GENERAL: Well-appearing, well-nourished, and in no acute distress. HEAD: Normocephalic, atraumatic. EYES: PERRLA and EOMI. ENT: Nares clear, no rhinorrhea or epistaxis. Mucous membranes moist.TM's normal throat pink no lesions or exudates, tonsils absent NECK: Supple.no lymphadenopathy CHEST: Clear to auscultation. No respiratory distress. SAO2 98% on room air HEART: Regular rate and rhythm. No murmur heard. Normal peripheral pulses. ABDOMEN: Soft, nontender, nondistended, normal active bowel sounds. EXTREMITIES: Normal range of motion. No edema. Exception noted to dorsal lateral left foot and ankle, strong pedal pulses present, no obvious deformity noted. Patient has some tenderness to left hip region from fall and also to thoracic region of back with some increase pain with deep inspiration, no dyspnea noted, full ROM of upper extremities with no tingling or numbness verbalized and strong pulses palpable to upper extremities. SKIN: Warm, dry, no rash. NEURO: No focal deficits. Alert and oriented x3. Course Course Level of Care: Express Care Visit Vital S
--- NOTE | 2021-10-28 17:21 | PC.NURSE ---
PT DECLINED WHEELCHAIR AND ICE FOR COMFORT
== END 2021-10-28 09:45 | disposition home or self-care (01) ==
PROVIDERS: Emergency Provider Registered Nurse; PCP Family Medicine
DX: S90.02XA Contusion of left ankle, initial encounter (principal); S90.32XA Contusion of left foot, initial encounter; S70.02XA Contusion of left hip, initial encounter; W00.0XXA Fall on same level due to ice and snow, initial encounter; M54.6 Pain in thoracic spine; J45.909 Unspecified asthma, uncomplicated
CPT/HCPCS: 72072; 73502; 73610; 99214; G0463

== ENCOUNTER 2021-12-07 20:08 | Emergency (ER) | payer SELFPAY ==
--- NOTE | ~2021-12-07 | XR_ITS ---
EXAMINATION: XR ankle RT min 3V EXAM DATE: 12/08/2021 00:01 INDICATION: recent ankle surgery, pain . TECHNIQUE: Right ankle frontal, lateral and oblique projections obtained and reviewed. Comparison is made to prior examination from 08/20/2021. FINDINGS: The right ankle mortise appears intact. There are no acute fractures or dislocations iden tified. There is no subcutaneous gas. The soft tissue is unremarkable. There are no radiopaque fo reign bodies. IMPRESSION: Unremarkable right ankle exam. Reviewed, dictated and finalized at location D.
[2021-12-07 20:38] VITALS: BP 141/90; PULSE 74; RESP 18; TEMP 36.9; O2SAT 100
--- NOTE | 2021-12-07 22:59 | PC.NURSE ---
Addendum entered by Janna Yan RN 12/07/21 23:07: This RN was incorrect in thinking the pt was leaving. Pt still wishes to be seen. Pt was never removed from tracker. Original Note: Pt to desk stating she can't sit here in this pain any more and will be leaving. Pt encouraged to return if she has further concerns at home.
--- NOTE | 2021-12-07 23:20 | ED.LOWEXIN ---
HPI - Extremity Injury (Lower) General Chief Complaint: Extremity Injury, Lower Stated Complaint: right foot pain s/p surgery Time Seen by Provider: 12/07/21 23:20 Source: patient Mode of arrival: ambulatory Limitations: no limitations History of Present Illness HPI Narrative: Patient is a 31 yo female with a history of asthma, presenting to the ER for evaluation of right foot pain after she had bone surgery removal with Dr. Baumann yesterday 12/07/21. Pt reporting increasing percocet dose today from 01/09/2025 every 6 hours to 10/ every 12 hours. Patient reports aching pain at the site. Denies numbness or weakness. Denies significant bruising or discharge. Patient denies calf pain, redness, unilateral swelling. No knee pain. No other fall or injury. Patient has kept her splint and bandage in place. Related Data Home Medications Medication Instructions Recorded Confirmed albuterol sulfate 2 puff INHALATION QID PRN 10/28/21 10/28/21 Allergies Allergy/AdvReac Type Severity Reaction Status Date / Time promethazine Allergy Anaphylactic Verified 12/07/21 23:26 Shock Review of Systems Review of Systems: CONSTITUTIONAL: Denies fever CARDIOVASCULAR: Denies chest pain RESPIRATORY: Denies cough or dyspnea. GASTROINTESTINAL: Denies abdominal pain SKIN: Denies rash MUSCULOSKELETAL: Denies back pain NEUROLOGIC: Denies headache PMFSH Past Medical History Medical History Anemia Asthma Chronic bronchitis Frequent headaches History of PCOS Migraines Surgical History Surgical History History of dilation and curettage History of ovarian cystectomy History of tonsillectomy and adenoidectomy Family History Family History Grandparent Hypertension Malignant neoplasm of prostate Breast cancer Heart disease Throat cancer Father Acute myocardial infarction Social History Social History Smoking status: Never smoker Alcohol intake: current Alcohol use details: social Substance use: never Gender identity (if verbalized by the patient): Female Exam Narrative: GENERAL: Awake, alert, conversant HEAD: Normocephalic, atraumatic. EYES: PERRLA and EOMI. ENT: Nares clear, no rhinorrhea or epistaxis. Mucous membranes moist. NECK: Supple. CHEST: No respiratory distress, breathing even and non labored HEART: Regular rate, sinus rhythm ABDOMEN:Non distended, non tender EXTREMITIES: Decreased range of motion at the right ankle. Patient has posterior right ankle incision that is clean, dry, intact. Sutures are in the well alignment without drainage, purulence, dehiscence. There is no active bleeding. No significant edema or ecchymosis. DP pulse 2+. Popliteal pulse 2+. No calf tenderness. Compartments are soft. New unilateral edema, induration, erythema. SKIN: Warm, dry, no rash. NEURO:No focal deficits. Alert and oriented x3 Course Vital Signs Vital signs: Vital Signs Temperature 36.9 C 12/07/21 20:38 Pulse Rate 74 12/07/21 20:38 Respiratory Rate 18 12/07/21 20:38 Blood Pressure 141/90 H 12/07/21 20:38 Pulse Oximetry 100 12/07/21 20:38 Temperature 36.9 C 12/07/21 20:38 Pulse Rate 74 12/07/21 20:38 Respiratory Rate 18 12/07/21 20:38 Blood Pressure 141/90 H 12/07/21 20:38 Pulse Oximetry 100 12/07/21 20:38 MDM - Extremity Injury (Lower) MDM Narrative Medical decision making narrative: Patient presented for evaluation of postoperative ankle pain after bone spur removal yesterday. The patient's splint was removed, wound was undressed and it is well-healing. Clean, dry, intact without dehiscence, edema, ecchymosis, drainage. No sign of infection. No systemic signs of infection. Patient is neurovascularly intact, extremities warm and well
[2021-12-07] MEDS: oxyCODONE/ACETAMINOPHEN (*CRX) 5-325 MG TABLET 2 TABLET PO (23:53)
[2021-12-08] MEDS: KETOROLAC (*BKC) 60 MG/2 ML VIAL 30 MG IM (01:02)
[2021-12-08 01:05] VITALS: BP 131/89; PULSE 62; RESP 16; O2SAT 98
== END 2021-12-08 01:05 | disposition home or self-care (01) ==
PROVIDERS: Emergency Provider Emergency Medicine; PCP Family Medicine
DX: G89.18 Other acute postprocedural pain (principal); M79.671 Pain in right foot; E28.2 Polycystic ovarian syndrome; J42 Unspecified chronic bronchitis; J45.909 Unspecified asthma, uncomplicated; Z86.2 Personal history of diseases of the blood and blood-forming organs and certain disorders involving the immune mechanism
CPT/HCPCS: 73610; 96372; 99283; A9270; J1885

== ENCOUNTER 2022-07-24 08:29 | Emergency (ER) | payer OTHER, SELFPAY ==
[2022-07-24 08:44] VITALS: BP 126/77; PULSE 94; RESP 20; TEMP 36.7; O2SAT 100
--- NOTE | 2022-07-24 09:14 | ED.URI ---
HPI - URI/Sore Throat General Chief Complaint: Upper Respiratory Infection Stated Complaint: Cough/Runny Nose Time Seen by Provider: 07/24/22 09:13 Source: patient and RN notes reviewed Mode of arrival: ambulatory Limitations: no limitations History of Present Illness HPI Narrative: 32-year-old female presents concern for 5 day history of cough, nasal congestion, scratchy throat, fatigue, general malaise, sneezing. Reports multiple [id number] remedies without relief. She reports history of bronchitis, she has an albuterol inhaler which she has not needed to use. 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 She had a negative at home COVID test. MD elicited complaint: cough and rhinorrhea Related Data Home Medications Medication Instructions Recorded Confirmed albuterol sulfate 90 mcg/actuation 2 puff inhalation QID PRN 10/28/21 07/24/22 aerosol inhaler Shortness Of Breath Allergies Allergy/AdvReac Type Severity Reaction Status Date / Time promethazine Allergy Anaphylactic Verified 07/24/22 08:58 Shock Review of Systems Review of Systems: CONSTITUTIONAL: Reports malaise, fatigue. Denies chills, sweats, or fever. EYES: Denies visual changes, redness, or discharge. ENT: Reports rhinorrhea, congestion, sneezing, scratchy throat. Denies sinus pain, otalgia and sore throat. CARDIOVASCULAR: Denies chest pain, palpitations, or edema. RESPIRATORY: Reports cough. Denies dyspnea. GASTROINTESTINAL: Denies abdominal pain, nausea, vomiting, diarrhea SKIN: Denies rash or itching. MUSCULOSKELETAL: Reports myalgia. NEUROLOGIC: Denies headache. All systems reviewed & are unremarkable except as noted in HPI and below PMFSH Past Medical History Medical History Anemia Asthma Bone spur of foot Removed 12/06/21 right foot Chronic bronchitis Frequent headaches History of PCOS Migraines Surgical History Surgical History History of dilation and curettage History of ovarian cystectomy History of tonsillectomy and adenoidectomy Family History Family History Grandparent Hypertension Malignant neoplasm of prostate Breast cancer Heart disease Throat cancer Father Acute myocardial infarction Social History Social History Smoking status: Never smoker Alcohol intake: current Alcohol use details: social Substance use: never Gender identity (if verbalized by the patient): Female Comments At time of signature, agree with nursing past medical, surgical, social and family history. There is no relevant family history pertinent to the presenting complaint Exam Narrative: GENERAL: Well-appearing, well-nourished, and in no acute distress. HEAD: Normocephalic EYES: PERRLA, conjunctivae clear ENT: Nares clear, turbinates edematous and erythematous, clear discharge. Mucous membranes moist. TM pearly becker with dull light reflex bilaterally; no tragal tenderness. Oropharynx not erythematous without lesions. Tonsils not enlarged and without exudate, no drooling, no hoarseness, no trismus, uvula midline. NECK: Supple. No lymphadenopathy CHEST: Clear to auscultation, breath sounds equal. No wheezing, rhonchi, rales, or stridor. No respiratory distress, speaks in full sentences. HEART: Regular rate and rhythm. No murmur heard. SKIN: Warm, dry, no rash. NEURO: Alert and oriented x3. PSYCH: Normal mood and affect Course Course Emergency Course: Patient is aware of diagnosis, understands and agrees to treatment plan. Anticipatory guidance given. Patient agrees to follow-up as directed and is aware of reasons to seek care at the emergency department. Portions of this record may have been created with voice recognition software Level of Care: [facility]
== END 2022-07-24 09:50 | disposition home or self-care (01) ==
PROVIDERS: Emergency Provider Nurse Practitioner; PCP Family Medicine
DX: J06.9 Acute upper respiratory infection, unspecified (principal); R05.9 Cough, unspecified; R09.81 Nasal congestion
CPT/HCPCS: 87420; 87804; 99213; G0463

== ENCOUNTER 2022-08-27 10:50 | Outpatient (CLI) | payer OTHER, SELFPAY ==
--- NOTE | ~2022-08-27 | US_ITS ---
Pelvic ultrasound. Clinical History: Pelvic pain Technique: Realtime transabdominal and transvaginal scanning of the pelvis was performed. Color flow Doppler and Doppler spectral analysis were performed. Findings: The uterus is anteverted. The endometrial stripe has a thickness of 3 mm. No focal mass is identified. The right ovary measures 3.6 x 2.1 x 3.1 cm. No significant right ovarian or adnexal mass is seen. The left ovary measures 3.3 x 2.7 x 2.6 cm. No significant left ovarian or adnexal mass is seen. Vascular flow present in both ovaries on Doppler spectral analysis. Both ovaries demonstrate small, p eripherally oriented follicular cysts. There is no evidence of free fluid in the cul de sac. Impression: Morphologic findings of the ovaries raise the possibility of PCOS. Correlate clinically. Reviewed, dictated and finalized at [facility]. AND COVER LINE WORKER Impression: Morphologic findings of the ovaries raise the possibility of PCOS. Correlate cl inically.
== END 2022-08-27 10:51 | disposition home or self-care (01) ==
PROVIDERS: PCP Family Medicine; Visit Provider Student in an Organized Health Care Education/Training Program
DX: R10.2 Pelvic and perineal pain (principal)
CPT/HCPCS: 76830; 76856

== ENCOUNTER 2022-11-21 00:46 | Day surgery (SDC) | payer OTHER, MEDICAID, SELFPAY ==
[2022-11-12 15:23] VITALS: BMI 37.3
--- NOTE | 2022-11-12 15:29 | PC.NURSE ---
Report to the Outpatient Waiting Room, entrance under the green pavilion located off [facility], at time 0600 on date 11/21/22. Planned Procedure Time: 0730. Time changes happen often and if your time is changed the preop area will call you the afternoon before. - You and your visitor will be asked to self-screen and do not enter if you have any COVID symptoms. - Only one visitor is requested with a max of two and NO children visitors are allowed at this time. - The patient visitor may be requested to leave or wait in car when not with patient due to distancing restrictions. - A mask is optional within the hospital at this time. Patients may have clear liquids (water, carbonated beverages, clear teas, apple juice) until 3 hours prior to surgery with a maximum of 20 ounces. - No food from midnight until time of surgery Take the following medications with a SIP of water the morning of surgery: ALBUTEROL IF NEEDED DO NOT STOP ANY OF YOUR OTHER PRESCRIPTION MEDICATIONS PRIOR TO SURGERY EXCEPT THE FOLLOWING Medications to discontinue per physician: N/A Date to take last dose: N/A Please no make-up, nail singaporean, hairspray, perfume, deodorant, or body powder the day of surgery. No jewelry (including any body piercings) or valuables the day of surgery, leave them at home. Please take a shower or bath the night before, or the morning of, surgery with an antibacterial soap. Wear comfortable, loose fitting clothing. - Jewelry must be removed prior to entering the operating room. Rings and piercings that are not removed may be cut off. - The hospital will not accept responsibility for valuables. - Please leave all valuables, including medications, at home the day of surgery. If you are going home after surgery, a licensed water taxi driver must drive you home. - NO public transportation without another adult if you receive anesthesia. - We recommend that an adult stay with you for 24 hours following discharge. - We also recommend that you do not drive, make important decision, drink alcoholic beverages, or take any drugs that were not prescribed by your health care provider for at least 24 hours after your discharge time. Follow any additional instructions given to you from your surgeon. If you or anyone in your household have experienced Covid symptoms in the past week, please notify your surgeon or the nurse liaison at the phone number below for possible testing. Telephone instructions given to KAMINI PHAN and asked if any additional questions and then verbalized understanding. Patient advised to call surgeon office or pre surgery nurse liaison [phone] if any additional questions.
--- NOTE | 2022-11-20 23:15 | PM.IMHP ---
H&P: HPI History of Present Illness Date/Time: 11/20/22 23:15 Chief Complaint: Abnormal uterine bleeding Narrative: Patient with a history of PCOS and long history of abnormal uterine bleeding. She has had several hormonal contraception options tried without significant improvement. The last OCP improved bleeding some but still not regular. Recent ultrasound significant for ovaries with possible PCOS appearance. She has been given options of D and C hysteroscopy in the past if bleeding persist which is what she now wants. She has a history of pelvic pain and previous laparoscopy and pain has improved. Review of Systems Review of Systems: All systems reviewed & are unremarkable except as noted in HPI and below Constitutional: Constitutional: Reports no additional constitutional complaints Eyes: Eyes: Reports no additional eye complaints Cardiovascular: Cardiovascular: Reports no additional cardiovascular complaints Respiratory: Respiratory: Reports no additional respiratory complaints Gastrointestinal: Gastrointestinal: Reports no additional gastrointestinal complaints Genitourinary: Genitourinary: Reports no additional female genitourinary complaints and Reports as per HPI Integumentary/Breasts: Skin/Breast: Reports system reviewed and no additional complaints, except as docu Neurologic: Reports system reviewed and no additional complaints, except as documented Psychiatric: Psychiatric: Reports no additional psychiatric complaints Hematologic/Lymphatic: Hematologic/Lymphatic: Reports no additional hematologic/lymphatic complaints [facility] Past Medical History Medical History Anemia Asthma Bone spur of foot Removed 12/06/21 right foot Chronic bronchitis Frequent headaches History of PCOS Migraines Surgical History Surgical History History of dilation and curettage History of ovarian cystectomy History of tonsillectomy and adenoidectomy Family History Family History Grandparent Hypertension Malignant neoplasm of prostate Breast cancer Heart disease Throat cancer Father Acute myocardial infarction Social History Social History Smoking status: Never smoker Alcohol intake: current Drinks per week: 1 Alcohol use details: social Substance use: never Substance use type: does not use Living arrangements: alone Gender identity (if verbalized by the patient): Female Spiritual care concerns: No Meds Home Medications and Allergies Home Medications Medication Instructions Recorded Confirmed Type albuterol sulfate 90 mcg/actuation 2 puff inhalation QID PRN 10/28/21 11/12/22 History aerosol inhaler Shortness Of Breath Allergies Allergy/AdvReac Type Severity Reaction Status Date / Time promethazine Allergy Severe Anaphylactic Verified 11/21/22 06:38 Shock Exam Const: General: comfortable and no acute distress Orientation/consciousness: oriented to person, oriented to place and oriented to time Eyes: General: appearance normal, both eyes and all related structures Neck: Neck: normal visual inspection Resp: Effort & Inspection: normal respiratory effort Auscultation: clear to auscultation bilaterally Cardio: Rate: regular rate Rhythm: regular rhythm GI: Inspection: normal to inspection GI Palp: No abdominal tenderness and Yes No hepatosplenomegaly present : External Female Exam: normal external appearance Speculum Exam - Vagina: normal appearance of the vagina Speculum Exam - Cervix: normal appearance of the cervix Bimanual exam- vagina & uterus: normal bimanual exam, uterine mobility normal, uterine shape normal and non-tender Bimanual Exam- Adnexa, other: no masses and No adnexal tenderness Skin: General skin exam: normal color
[2022-11-21 06:07] VITALS: BP 115/74; PULSE 78; RESP 16; TEMP 36; O2SAT 99
--- NOTE | 2022-11-21 06:35 | WPDANESEPPF ---
Anes - Initial Pre Proc Eval Procedure: Operation Date: 11/21/22 07:30 Proposed Procedures p Hysteroscopy, Dilation and Curettage, Possible Fibroid Removal, Diagnostic Laparoscopy - Faizan Ascencio MD Date/Time: 11/21/22 06:35 Surgeon: Faizan Ascencio MD Pre Op Diagnosis: excessive and frequent menstruation, pelvic pain Patient Data Age: 32 Gender: F Height: 1.78 m Weight: 117.95 kg Allergies Allergy/AdvReac Type Severity Reaction Status Date / Time promethazine Allergy Anaphylactic Verified 11/12/22 15:23 Shock Home Medications Medication Instructions Recorded Confirmed Type albuterol sulfate 90 mcg/actuation 2 puff inhalation QID PRN 10/28/21 11/12/22 History aerosol inhaler Shortness Of Breath Patient hx anesthesia problems: none Family hx anesthesia problems: none Results Review: All pre-operative results and documents have been reviewed as part of the pre-operative evaluation. [facility] Past Medical History Medical History Anemia Asthma Bone spur of foot Removed 12/06/21 right foot Chronic bronchitis Frequent headaches History of PCOS Migraines Surgical History Surgical History History of dilation and curettage History of ovarian cystectomy History of tonsillectomy and adenoidectomy Family History Family History Grandparent Hypertension Malignant neoplasm of prostate Breast cancer Heart disease Throat cancer Father Acute myocardial infarction Social History Social History Smoking status: Never smoker Alcohol intake: current Drinks per week: 1 Alcohol use details: social Substance use: never Substance use type: does not use Living arrangements: alone Gender identity (if verbalized by the patient): Female Spiritual care concerns: No Anes - Eval Final PreProcedure Day of Procedure 11/21/22 06:35 Patient weight: obese Heart: regular rate and rhythm Lungs: clear to auscultation Airway: Mallampati scale class II Neurological: alert and oriented Last oral intake: >/= 8 hours ASA classification: II Emergent: no Anesthetic plan: proceed Anesthesia type and monitoring: general ETT and standard monitoring Results Review: All pre-operative results and documents have been reviewed as part of the pre-operative evaluation. Informed Consent: The patient's anesthetic plan and its attendant risks and benefits were discussed with the patient/family/POA. Questions were solicited and answers provided to the satisfaction of the patient/family/POA.
[2022-11-21] MEDS: ACETAMINOPHEN 500 MG TABLET 1000 MG PO (06:41)
[2022-11-21] MEDS: LACTATED RINGERS 1,000 ML 30 ML IV CONT (06:51)
[2022-11-21] MEDS: KETOROLAC 15 MG/ML VIAL (*BKC) IV PUSH (06:52)
[2022-11-21] MEDS: ceFAZolin 2 GM/D5W 50 ML 2 GM/50 ML BAG IVPB (07:31)
[2022-11-21] MEDS: LIDOCAINE HCL 1% LOCAL INJ 10 ML VIAL INFILTRATE (07:53)
[2022-11-21 08:17] VITALS: BP 126/78; PULSE 84; RESP 14; O2SAT 100
--- NOTE | 2022-11-21 08:18 | W.PM.PROC2 ---
Procedure Note - Detailed Date of Procedure 11/21/22 Pre-op Diagnosis excessive and frequent menstruation Post-op Diagnosis Same Procedure Performed Diagnostic hysteroscopy and dilation and currettage , removal of endometrial lesion Surgeon Faizan Ascencio MD Anesthesia MAC and Local Indications Dysfunctional uterine bleeding Findings uterineCavity sounds to 7.5 cm the uterine cavity appeared normal there was a small questionable polyp at the left upper uterus near the tubal ostia attempted to remove it with the a beaded which denuded and then it was no longer there after that. Minimal tissue with the curettage. total fluid discrepancy was 80 cc. Description of Procedure After informed consent was obtained patient was taken to the operating room and adequate IV sedation was administered she was placed in high lithotomy position and prepped and draped in sterile fashion. Attention was turned to the cervix single-tooth tenaculum placed on the anterior lip of the cervix 10 cc of 1% lidocaine plain was injected at the cervical vaginal interface at 2 8 and 10 position. The cervix was dilated to an 7 Hawley dilator. The hysteroscope was inserted most of the tissue appeared nonproliferative there was a slight questionable several mm tag of tissue or polyp near the ostia of the left upper uterus near the tubal ostia. Attempted to remove this with the viewed instrument but the instrument was able to touch is slightly but not in close it this was tried several times. Visualize the area again and was going to grab it with a grasper but the lesion was no longer there. A curettage was then performed after this. Single-tooth tenaculum removed hemostasis noted. Sponge count was correct patient tolerated procedure well and was taken to recovery in stable condition. Estimated Blood Loss 5 Drains No Packing No Pathology Yes ( Endometrial curettage) Complications No immediate complications Condition Stable Disposition Same day [facility] Billing Surgery - Charge Forward: Surgery Billing
[2022-11-21 08:25] VITALS: PULSE 87; RESP 14; O2SAT 100
--- NOTE | 2022-11-21 08:25 | WPDHPUPDATE1 ---
History and Physical Update Update Date/Time: 11/21/22 08:25 History and Physical has been reviewed, including an updated exam of the patient. There are NO changes in the patient's condition. Risks, benefits, and alternatives have been discussed and questions answered. Patient agrees to proceed with procedure.
[2022-11-21 08:45] VITALS: BP 126/83; PULSE 72; RESP 16; O2SAT 100
[2022-11-21 09:15] VITALS: BP 106/68; PULSE 67; RESP 20
[2022-11-21 09:45] VITALS: BP 100/62; PULSE 62; RESP 20
== END 2022-11-21 09:53 | disposition home or self-care (01) ==
PROVIDERS: PCP Family Medicine; Visit Provider Obstetrics & Gynecology
PROC: 0UDB8ZZ Extraction of Endometrium, Via Natural or Artificial Opening Endoscopic (ICD-10-PCS; CPT 58558; principal; 2022-11-21 07:30)
DX: N92.0 Excessive and frequent menstruation with regular cycle (principal); R10.2 Pelvic and perineal pain; J45.909 Unspecified asthma, uncomplicated; Z79.51 Long term (current) use of inhaled steroids; E66.9 Obesity, unspecified; Z68.37 Body mass index [BMI] 37.0-37.9, adult
CPT/HCPCS: 58558; 88305; A9270; J0690; J1100; J1885; J2250; J2405; J2704; J3010; J7030; J7120

== ENCOUNTER 2023-01-25 12:48 | Outpatient (CLI) | payer OTHER, MEDICAID, SELFPAY ==
--- NOTE | ~2023-01-25 | US_ITS ---
EXAMINATION: US pelvic complete w TV DATE: 01/25/2023 14:38 INDICATION: Pelvic and peroneal Comparison:08/27/2022 TECHNIQUE: Multiple transabdominal and endovaginal sonographic images of the pelvis performed. FINDINGS: The uterus measures 7.5 x 3.9 x 4.8 cm. There is nabothian cysts. The endometrial complex m easures 9.5 mm. The right ovary measures 5.1 x 3 x 3.1 cm and the left ovary measures 3.6 x 2.4 x 2.9 cm. There are small follicles in each ovary. Normal doppler signal in both ovaries. There is free fluid in the pelvis. There are no abnormal masses seen on either side. IMPRESSION: 1. Unremarkable pelvic ultrasound. Reviewed, dictated and finalized at location B.
== END 2023-01-25 12:49 | disposition home or self-care (01) ==
LOC: ANHIMG 12:56
PROVIDERS: PCP Family Medicine; Visit Provider Obstetrics & Gynecology
DX: R10.2 Pelvic and perineal pain (principal); N83.209 Unspecified ovarian cyst, unspecified side
CPT/HCPCS: 76830; 76856

== ENCOUNTER 2023-03-31 08:27 | Outpatient (CLI) | payer OTHER, MEDICAID, SELFPAY ==
--- NOTE | ~2023-03-31 | MR_ITS ---
EXAMINATION: MR shoulder RT wo con DATE: 03/31/2023 09:09 INDICATION: Right shoulder pain TECHNIQUE: Magnetic resonance imaging (MRI) of the right shoulder was performed without intravenous c ontrast. Sequences included axial PD-weighted FS FSE, coronal oblique PD-weighted FS FSE, coronal obl ique T2-weighted FS FSE, sagittal PD-weighted FS FSE, and sagittal T1-weighted SE. COMPARISON: None. FINDINGS: Coracoacromial arch: The acromion undersurface is flat in morphology (type I). The coracoacromial ligament is normal. Mild acromioclavicular osteoarthritis with mild subarticular cystic change and minimal subarticular edema -like signal change at the lateral head of the clavicle. Rotator cuff: Mild tendinopathy without discrete tear at the conjoined portion of the supraspinatus and infraspinat us tendons. The teres minor and subscapularis tendons are normal. Normal rotator cuff muscle bulk and signal. Biceps tendon, glenoid labrum and glenohumeral cartilage: Long head of the biceps tendon is normal. Glenoid labrum is normal. Glenohumeral cartilage is normal. Fluid: Physiologic amount of fluid in the glenohumeral joint and biceps tendon sheath. No loose osteochondr al bodies. No abnormal fluid signal in the subacromial/subdeltoid bursa to suggest bursitis. Bones: Siphon the previous noted mild degenerative subarticular changes at the lateral head of the clavicle there is normal marrow signal with no other reactive edema, fracture or pathologic marrow replacing p rocess. IMPRESSION: 1. Mild acromioclavicular osteoarthritis. 2. Mild tendinopathy without tear at the conjoined portion of the supraspinatus and infraspinatus aneta michelle. Reviewed, dictated and finalized at location A. IMPRESSION: 1. Mild acromioclavicular osteoarthritis. 2. Mild tendinopathy without tear at the conjoined portion of the supraspinatus and infraspinatus tendons.
== END 2023-03-31 08:28 | disposition home or self-care (01) ==
PROVIDERS: PCP Family Medicine; Visit Provider Family Medicine
DX: M19.011 Primary osteoarthritis, right shoulder (principal)
CPT/HCPCS: 73221

== ENCOUNTER 2023-06-15 08:19 | Emergency (ER) | payer OTHER, MEDICAID, SELFPAY ==
[2023-06-15 09:05] VITALS: BP 131/74; PULSE 68; RESP 18; TEMP 36.6; O2SAT 100
--- NOTE | 2023-06-15 09:18 | ED.GENADULT ---
HPI - General Adult General Chief complaint: Urogenital-Female Stated complaint: frequent and painful urination Source: patient Mode of arrival: ambulatory Limitations: no limitations History of Present Illness HPI narrative: Patient presents for evaluation of urinary symptoms for last 2 days. Symptoms include urgency, hesitancy, frequency, dribbling status post void and some blood clots in the urine. She also has some left flank pain that she rates 5/10 in severity. She denies dysuria, vaginal bleeding/discharge, Her left flank pain is now migrating into the left side of her abdomen. No fever or chills. She has a hx of kidney stones and remote history of UTI. She is not sexually active. Related Data Home Medications Medication Instructions Recorded Confirmed albuterol sulfate 90 mcg/actuation 2 puff inhalation QID PRN 10/28/21 06/15/23 aerosol inhaler Shortness Of Breath phentermine 37.5 mg tablet mg 06/15/23 Allergies Allergy/AdvReac Type Severity Reaction Status Date / Time promethazine Allergy Severe Anaphylactic Verified 06/15/23 09:00 Shock Review of Systems Review of Systems: CONSTITUTIONAL: Denies fever, chills, or sweats. EYES: Denies visual changes, redness, or discharge. ENT: Denies rhinorrhea, congestion, sore throat, or otalgia. CARDIOVASCULAR: Denies chest pain, palpitations, or edema. RESPIRATORY: Denies cough or dyspnea. GASTROINTESTINAL: Denies abdominal pain, nausea, vomiting, or diarrhea. GENITOURINARY: Reports urinary frequency, urgency, hesitancy, hematuria and dribbling. Denies dysuria, vaginal bleeding/discharge. SKIN: Denies rash or itching. MUSCULOSKELETAL: Reports left flank pain. Denies joint pain, or myalgia. NEUROLOGIC: Denies headache, numbness, dizziness, or weakness. PSYCHIATRIC: Denies anxiety or depression. [facility] Past Medical History Medical History Anemia Asthma Bone spur of foot Removed 12/06/21 right foot Chronic bronchitis Frequent headaches History of PCOS Migraines Surgical History Surgical History History of dilation and curettage History of ovarian cystectomy History of tonsillectomy and adenoidectomy Family History Family History Grandparent Hypertension Malignant neoplasm of prostate Breast cancer Heart disease Throat cancer Father Acute myocardial infarction Social History Social History Smoking status: Never smoker Alcohol intake: current Drinks per week: 1 Alcohol use details: social Substance use: never Substance use type: does not use Living arrangements: alone Gender identity (if verbalized by the patient): Female Spiritual care concerns: No Exam Narrative: GENERAL: Well-appearing, well-nourished, and in no acute distress. HEAD: Normocephalic, atraumatic. EYES: PERRLA and EOMI. ENT: Nares clear, no rhinorrhea or epistaxis. Mucous membranes moist. Oropharynx without tonsillar hypertrophy exudate or other lesions. Bilateral TMs pearly becker nonbulging NECK: Supple. No adenopathy or masses. No carotid bruits or JVD CHEST: Clear to auscultation. No respiratory distress. No wheezes rales or rhonchi HEART: Regular rate and rhythm. No murmur heard. Normal peripheral pulses. BACK: No CVA tenderness ABDOMEN: Soft, nontender, nondistended, normal active bowel sounds. EXTREMITIES: Normal range of motion. No edema. SKIN: Warm, dry, no rash. NEURO: No focal deficits. Alert and oriented x3. PSYCH: Normal mood and affect. Course Course Emergency Course: This is a 32-year-old female who presented for evaluation of urinary symptoms. She has leukocytes and blood in urine. Will send urine for culture and sensitivity. Start Bactrim. I do suspect that she has a kidney s
== END 2023-06-15 08:43 | disposition home or self-care (01) ==
PROVIDERS: Emergency Provider Nurse Practitioner; PCP Family Medicine
DX: N39.0 Urinary tract infection, site not specified (principal); Z87.442 Personal history of urinary calculi; B95.1 Streptococcus, group B, as the cause of diseases classified elsewhere; J45.909 Unspecified asthma, uncomplicated; E28.2 Polycystic ovarian syndrome
CPT/HCPCS: 81003; 87086; 87088; 87147; 99213; G0463

== ENCOUNTER 2023-09-14 16:41 | Emergency (ER) | payer OTHER, MEDICAID, SELFPAY ==
[2023-09-14 16:48] VITALS: BP 128/90; PULSE 89; RESP 16; TEMP 36.6; O2SAT 100
--- NOTE | 2023-09-14 18:01 | ED.GENADULT ---
HPI - General Adult General Chief complaint: Wound/Laceration Stated complaint: Skin Sore/Finger Source: patient Mode of arrival: ambulatory Limitations: no limitations History of Present Illness HPI narrative: Patient presents for evaluation of pain and swelling to the skin surrounding the nail plate of the 4th digit of the right hand. Symptom onset today. She does not provide me with a descriptive quality are numerical rating to the pain. No loss of range of motion. She is not diabetic. She is right-hand dominant. She reports some purulent and sanguinous drainage from the affected area. She tried to run warm water over the digit and the digit was quite sensitive and she felt like she could not tolerate it. Related Data Home Medications Medication Instructions Recorded Confirmed albuterol sulfate 90 mcg/actuation 2 puff inhalation QID PRN 10/28/21 06/15/23 aerosol inhaler Shortness Of Breath phentermine 37.5 mg tablet mg 06/15/23 Allergies Allergy/AdvReac Type Severity Reaction Status Date / Time promethazine Allergy Severe Anaphylactic Verified 09/14/23 16:54 Shock Review of Systems Review of Systems: CONSTITUTIONAL: Denies fever, chills, or sweats. EYES: Denies visual changes, redness, or discharge. ENT: Denies rhinorrhea, congestion, sore throat, or otalgia. CARDIOVASCULAR: Denies chest pain, palpitations, or edema. RESPIRATORY: Denies cough or dyspnea. GASTROINTESTINAL: Denies abdominal pain, nausea, vomiting, or diarrhea. GENITOURINARY: Denies dysuria or hematuria. SKIN: Reports pain and swelling to fourth digit of right hand with associated drainage MUSCULOSKELETAL: Denies back pain, joint pain, or myalgia. NEUROLOGIC: Denies headache, numbness, dizziness, or weakness. PSYCHIATRIC: Denies anxiety or depression. [facility] Past Medical History Medical History Anemia Asthma Bone spur of foot Removed 12/06/21 right foot Chronic bronchitis Frequent headaches History of PCOS Migraines Surgical History Surgical History History of dilation and curettage History of ovarian cystectomy History of tonsillectomy and adenoidectomy Family History Family History Grandparent Hypertension Malignant neoplasm of prostate Breast cancer Heart disease Throat cancer Father Acute myocardial infarction Social History Social History Smoking status: Never smoker Alcohol intake: current Drinks per week: 1 Alcohol use details: social Substance use: never Substance use type: does not use Living arrangements: alone Gender identity (if verbalized by the patient): Female Spiritual care concerns: No Exam Narrative: GENERAL: Well-appearing, well-nourished, and in no acute distress. HEAD: Normocephalic, atraumatic. EYES: PERRLA and EOMI. ENT: Nares clear, no rhinorrhea or epistaxis. Mucous membranes moist. Oropharynx without tonsillar hypertrophy exudate or other lesions. Bilateral TMs pearly becker nonbulging NECK: Supple. No adenopathy or masses. No carotid bruits or JVD CHEST: Clear to auscultation. No respiratory distress. No wheezes rales or rhonchi HEART: Regular rate and rhythm. No murmur heard. Normal peripheral pulses. ABDOMEN: Soft, nontender, nondistended, normal active bowel sounds. EXTREMITIES: Normal range of motion. No edema. SKIN: There is a small amount of swelling with associated redness to the dorsal aspect of the skin surrounding the nail plate of the 4th digit of the right hand. There is a scant amount of dried sanguinous drainage present NEURO: No focal deficits. Alert and oriented x3. PSYCH: Normal mood and affect. Course Course Emergency Course: This is a 33-year-old female who presented for evaluation of pain,
== END 2023-09-14 18:02 | disposition home or self-care (01) ==
PROVIDERS: Emergency Provider Nurse Practitioner; PCP Family Medicine
DX: L03.011 Cellulitis of right finger (principal); J45.909 Unspecified asthma, uncomplicated; E28.2 Polycystic ovarian syndrome
CPT/HCPCS: 99213; G0463

== ENCOUNTER 2023-11-11 17:00 | Emergency (ER) | payer OTHER, MEDICAID, SELFPAY ==
[2023-11-11 17:06] VITALS: BP 113/81; PULSE 79; RESP 20; TEMP 36.5; O2SAT 99
--- NOTE | 2023-11-11 17:53 | ED.URI ---
HPI - URI/Sore Throat General Chief Complaint: Upper Respiratory Infection Stated Complaint: exposed to flu Time Seen by Provider: 11/11/23 17:45 Source: patient and RN notes reviewed Mode of arrival: ambulatory Limitations: no limitations History of Present Illness HPI Narrative: Patient presents today complaining 2 day history of congestion, rhinorrhea, eyes watering, sneeze. States she was exposed to influenza last week. She has tried some DayQuil today. History of asthma. States she had a severe asthma attack approximately 1 week ago and was treated with steroids and breathing treatments in the emergency room. Related Data Allergies Allergy/AdvReac Type Severity Reaction Status Date / Time promethazine Allergy Severe Anaphylactic Verified 09/14/23 16:54 Shock Review of Systems Review of Systems: CONSTITUTIONAL: Denies body aches, fever, chills, or sweats. EYES: Denies visual changes, redness, or discharge.+ eye watering ENT: Denies sore throat, or otalgia.+ congestion, rhinorrhea, sneezing CARDIOVASCULAR: Denies chest pain, palpitations, or edema. RESPIRATORY: Denies cough or dyspnea. GASTROINTESTINAL: Denies abdominal pain, nausea, vomiting, or diarrhea. GENITOURINARY: Denies dysuria or hematuria. SKIN: Denies rash, itching, or wounds. MUSCULOSKELETAL: Denies back pain, joint pain, or myalgia. NEUROLOGIC: Denies headache, numbness, tingling, or weakness. PSYCH: Denies depression or anxiety. [facility] Past Medical History Medical History Anemia Asthma Bone spur of foot Removed 12/06/21 right foot Chronic bronchitis Frequent headaches History of PCOS Migraines Surgical History Surgical History History of dilation and curettage History of ovarian cystectomy History of tonsillectomy and adenoidectomy Family History Family History Grandparent Hypertension Malignant neoplasm of prostate Breast cancer Heart disease Throat cancer Father Acute myocardial infarction Social History Social History Smoking status: Never smoker Alcohol intake: current Drinks per week: 1 Alcohol use details: social Substance use: never Substance use type: does not use Living arrangements: alone Gender identity (if verbalized by the patient): Female Spiritual care concerns: No Comments At time of signature, I have reviewed and agree with nursing past medical, surgical, social and family history unless otherwise noted. Please see nursing chart for further information. There is no relevant family history pertinent to the presenting complaint Exam Narrative: GENERAL: Well-appearing, well-nourished, and in no acute distress. HEAD: Normocephalic, atraumatic. EYES: EOMI. No redness or drainage. Conjunctivae normal. ENT: Mucous membranes pink and moist. Nares clear. No rhinorrhea. TMs normal bilaterally. Throat normal. Uvula midline. NECK: Normal AROM. Supple. No lymphadenopathy. CHEST: No respiratory distress. Clear to auscultation. HEART: Regular rate and rhythm. No murmur appreciated. EXTREMITIES: Normal range of motion. No edema. SKIN: Warm, dry, no rash. Capillary refill normal. Normal skin turgor. NEURO: No focal deficits. Alert and oriented x3. Gait steady. PSYCH: Normal affect. No signs of depression or anxiety. Course Course Level of Care: Express Care Visit Vital Signs Vital signs: Vital Signs Temperature 97.7 F 11/11/23 17:06 Pulse Rate 79 11/11/23 17:06 Respiratory Rate 20 11/11/23 17:06 Blood Pressure 113/81 11/11/23 17:06 Pulse Oximetry 99 11/11/23 17:06 Oxygen Delivery Room Air 11/11/23 17:06 Temperature 97.7 F 11/11/23 17:06 Pulse Rate 79 11/11/23 17:06 Respiratory Rate 20 11/11/23 17:
== END 2023-11-11 18:01 | disposition home or self-care (01) ==
PROVIDERS: Emergency Provider Nurse Practitioner; PCP Family Medicine
DX: J06.9 Acute upper respiratory infection, unspecified (principal); Z20.822 Contact with and (suspected) exposure to COVID-19; J45.909 Unspecified asthma, uncomplicated; E28.2 Polycystic ovarian syndrome
CPT/HCPCS: 87426; 87804; 99213; G0463

== ENCOUNTER 2024-09-07 14:20 | Outpatient (CLI) | payer OTHER, SELFPAY ==
[2024-09-07 14:55] LABS: Basophils Percent Auto 0.9 % (0.2-1.2); Eosinophils Absolute Auto 0.1 K/mm3 (0-0.3); Eosinophils Percent Auto 1.1 % (0-4.4); Hemoglobin 12.5 g/dL (12.0-15.0); Immature Granulocyte Absolute 0.01 K/mm3 (0.00-0.031); Immature Granulocyte Percent A 0.2 % (0-0.5); Lymphocytes Absolute Auto 1.61 K/mm3 (0.9-3.2); Lymphocytes Percent Auto 34.4 % (18.3-44.2); Mean Corpuscular HGB Conc 32.9 g/dl (32-36); Mean Corpuscular Hemoglobin 26.9 pg (26-34); Mean Corpuscular Volume 81.7 fl (80-100); Mean Platelet Volume 9.6 fl (7.4-10.4); Monocytes Absolute Auto 0.4 K/mm3 (0.1-0.6); Neutrophils Absolute Auto 2.6 K/mm3 (1.3-6.7); Neutrophils Percent Auto 54.4 % (45.5-73.1); Platelet Count Result 339 k/mm3 (150-375); Red Blood Count 4.65 M/mm3 (4.2-5.4); White Blood Count 4.7 K/mm3 (4.5-10.0)
[2024-09-07 15:48] LABS: Hepatitis B Surface Antigen Negative (Negative)
[2024-09-07 15:52] LABS: HIV 1/2 Ab P24 Ag Result Negative (Negative)
[2024-09-07 16:03] LABS: Hepatitis C Virus Antibody Negative (Negative)
[2024-09-07 16:25] LABS: Rubella IgG Antibody 2.6 IU/ML
[2024-09-08 07:35] LABS: Rapid Plasma Reagin Non-Reactive (NonReactive); Varicella IgG Antibody 3.85 S/CO
[2024-09-08 23:08] LABS: Hemoglobin 12.4 g/dL (11.7-15.5); MCH 26.3 pg (27.0-33.0); MCV 82.8 fL (80.0-100.0); RDW 14.3 % (11.0-15.0); Red Blood Cell Count 4.71 Million/uL (3.80-5.10)
== END 2024-09-07 14:21 | disposition home or self-care (01) ==
LOC: ANHLAB 14:22
PROVIDERS: PCP Physician Assistant; Visit Provider Obstetrics & Gynecology
DX: Z34.90 Encounter for supervision of normal pregnancy, unspecified, unspecified trimester (principal)
CPT/HCPCS: 36415; 83021; 85025; 86592; 86703; 86762; 86787; 86803; 86850; 86900; 86901; 87340; G0432

== ENCOUNTER 2024-11-09 08:05 | Outpatient (CLI) | payer OTHER, SELFPAY | END 2024-11-09 08:06 | disposition home or self-care (01) | LOC: ANHIMG 08:09 | PROVIDERS: PCP Physician Assistant; Visit Provider Obstetrics & Gynecology | DX: G43.909 Migraine, unspecified, not intractable, without status migrainosus (principal) | CPT/HCPCS: 70551 ==